=== PATIENT | female | born 1990 | race Caucasian/White ===

== ENCOUNTER 2021-09-06 11:13 | Emergency (ER) | payer OTHER, SELFPAY ==
[2021-09-06 11:28] VITALS: BP 134/95; PULSE 84; RESP 16; TEMP 36.9; O2SAT 97; BMI 26.5
--- NOTE | 2021-09-06 11:40 | DI.US.S_ITS ---
PROCEDURE: US PELVIC COMPLETE INDICATIONS: PAIN, BLEEDING TECHNIQUE: Real-time scanning was performed of the pelvic organs, with image documentation. Additional endovaginal scanning was necessary due to incomplete visualization of the adnexal and endometrial structures by transabdominal scanning. COMPARISON: None. FINDINGS: Uterus: Anteverted and measures 8.6 x 4 x 6.5 cm. The endometrium measures 2.6 mm in combined thickness. Hypoechoic lesion in the cervix, compatible with a nabothian cyst. Ovaries: The right ovary measures 2.6 x 1.5 x 3.2 cm. A thick-walled, hypoechoic lesion is seen in the right ovary, measuring up to 1.2 cm, concerning for hemorrhagic cyst. The left ovary measures 2.9 x 1.7 x 1.3 cm. Other: No pathologic free abdominal or pelvic fluid. IMPRESSION: Thick-walled, hypoechoic lesion in the right ovary, concerning for a hemorrhagic cyst. Dictated by: Jesús Hoffman M.D. on 09/06/2021 at 12:18 Approved by: Jesús Hoffman M.D. on 09/06/2021 at 12:21
[2021-09-06 11:42] LABS: Appearance Urine UA CLEAR; Bilirubin Urine UA NEGATIVE (NEGATIVE); Color Urine UA YELLOW; Glucose Urine UA NEGATIVE (Negative); Ketones Urine UA NEGATIVE (NEGATIVE); Leukocyte Esterase Urine UA NEGATIVE (NEGATIVE); Nitrite Urine UA NEGATIVE (Negative); Occult Blood Urine UA 3+ (Negative); Protein Urine UA NEGATIVE (Negative); Specific Gravity Urine UA <=1.005 (1.000-1.035); Urobilinogen Urine UA 0.2 E.U./dL (0.2)
[2021-09-06 11:45] LABS: pH Urine UA 5.5 (4.5-8.0)
[2021-09-06 11:46] LABS: Pregnancy Test Urine Positive (Negative)
[2021-09-06 11:53] LABS: RBC Urine 10-30/HPF (0-5/HPF); WBC Urine None Seen (0-5/HPF)
[2021-09-06 11:54] LABS: Bacteria Urine None Seen; Culture Indicated Urine Cult Not Indicated
[2021-09-06 12:00] LABS: Add Manual Diff / Slide Review NO; Basophils Absolute Auto 0 /uL (0-100); Basophils Percent Auto 0.6 % (0-2); Eosinophils Absolute Auto 100 /uL (0-450); Eosinophils Percent Auto 1.3 % (2-4); Hematocrit 38.4 % (36-46); Hemoglobin 12.7 g/dL (12.0-16.0); Lymphocytes Absolute Auto 1600 /uL (1100-4500); Mean Corpuscular HGB Conc 33.2 % (30-36); Mean Corpuscular Hemoglobin 27.5 PG (26-34); Mean Corpuscular Volume 82.9 fL (80-100); Monocytes Absolute Auto 600 /uL (0-900); Monocytes Percent Auto 7.2 % (3-14); Neutrophils Absolute Auto 5400 /uL (1500-7000); Neutrophils Percent Auto 69.9 % (50-75); Platelet Count 204 X10^3/uL (150-400); Red Blood Cell Count 4.63 X10^6/uL (4.0-5.2); White Blood Cell Count 7.7 X10^3/uL (4.5-11.0)
--- NOTE | 2021-09-06 12:11 | ED_ITS ---
HPI - <Daniel Roa PA-C - Last Filed: 09/06/21 13:27> General Chief complaint: OB/Uterine Contractions Stated complaint: Miscarriage on 08/22. heavy bleeding/cramping Time Seen by Provider: 09/06/21 11:34 History of Present Illness HPI Narrative: 31-year-old female, presents to the ED with abnormal vaginal bleeding. Patient states her LMP was 07/16/2021, had a positive test, started experiencing vaginal bleeding on 08/22/2021 through 08/31/2021. Between 08/24/2021 and 08/31/2021, patient's hCG was dropping. However, on 08/31/2021, her ECG up trended to 248. Patient's vaginal bleeding on 08/31/2021, but restarted on 09/03/2021. Patient has not had the ultrasound for this to date. Patient's OBGYN had wanted her hCG drawn today for trending, however sink given patient's new vaginal bleeding, she was advised to go to the ED. Patient denies fever, chills, shortness of breath, nausea, vomiting, lightheadedness, dizziness, syncope. Patient endorses prior history of ectopic , is concerned for a repeat ectopic . Patient also endorses some mild pelvic cramping. Review of Systems <Daniel Roa PA-C - Last Filed: 09/06/21 13:27> Constitutional Constitutional: Denies chills, Denies fatigue, Denies fever(s), Denies frequent falls, Denies lethargy and Denies weakness Eyes Eyes: Denies change in vision, Denies eye discharge, Denies irritation and Denies loss of vision ENT Ears, Nose, Mouth, and Throat: Denies change in voice, Denies dizziness, Denies neck pain, Denies sore throat and Denies throat swelling Cardiovascular Cardiovascular: Denies chest pain, Denies irregular heart rhythm, Denies lightheadedness, Denies palpitations, Denies dyspnea, Denies dyspnea on exertion and Denies orthopnea Respiratory Respiratory: Denies cough, Denies dyspnea, Denies dyspnea on exertion and Denies wheezing Gastrointestinal Gastrointestinal: Denies abdominal pain, Denies change in bowel habits, Denies diarrhea, Denies nausea and Denies vomiting Genitourinary Genitourinary: Reports abnormal vaginal bleeding and Reports pelvic pain Musculoskeletal Musculoskeletal: Denies neck pain and Denies numbness Integumentary/Breasts Skin/Breast: Denies pruritus, Denies erythema, Denies rash and Denies wounds Neurologic Neurologic: Denies behavioral changes, Denies confusion, Denies dizziness, Denies frequent falls, Denies loss of vision, Denies numbness and Denies weakness Psychiatric Psychiatric: Denies anxiety, Denies behavioral changes, Denies confusion, Denies depression, Denies homicidal ideation and Denies suicidal ideation Endocrine Endocrine: Denies fatigue, Denies flushing and Denies palpitations Hematologic/Lymphatic Hematologic/Lymphatic: Denies easy bruising Allergic/Immunologic Allergic/Immunologic: Denies urticaria, Denies throat swelling and Denies wheezing Exam <Daniel Roa PA-C - Last Filed: 09/06/21 13:27> Initial Vital Signs Initial Vital Signs: Vital Signs Temperature 98.5 F 09/06/21 11:28 Pulse Rate 84 09/06/21 11:28 Respiratory Rate 16 09/06/21 11:28 Blood Pressure 134/95 H 09/06/21 11:28 Pulse Oximetry 97 09/06/21 11:28 Const General: cooperative HENMT Head: normocephalic and atraumatic Ears: external ears normal and TM's normal bilaterally Nose: external nose normal and No nasal discharge Face and sinus: sinuses nontender, face symmetric, no sinus tenderness and No dry mucous membranes Mouth: oral mucosae normal and moist mucous membranes Teeth and gingiva: dentition normal Throat: tonsils normal and uvula midline Eyes General: appearance normal, both eyes and all related structures Eyelids: eyelids normal Conjunctivae: conjunctivae normal Sclera: sclerae normal Pupils: PERRL EOM: EOM intact bilaterally Neck Neck: normal visual inspection, trachea midline, No lymphadenopathy, No midline deformity and No JVD Lymphatic: No lymphedema Chest Chest: normal inspection of the chest Resp Effort & Inspection: normal respiratory effort, able to speak in complete s entences, no respiratory distress and no use of accessory muscles Auscultation: clear to auscultation bilaterally, no rales, no rhonchi and no wheezes Cardio Rate: regular rate Rhythm: regular rhythm Heart Sounds: no click, no gallops, no murmurs and no rubs Pulses: normal peripheral pulses GI Inspection: non-distended Palpation: soft, no hepatosplenomegaly, No guarding, No pulsatile mass and No tender Auscultation: normal bowel sounds Other: Abdomen is soft, nondistended, nontender to palpation. No CVA tenderness. Other: Bright red bleeding per vagina, no clots visualized Back/Spine/Pelvis Back: No CVA tenderness Cervical Spine: cervical ROM normal and No pain with cervical ROM Thoracic/Lumbar Spine: thoracic and lumbar spine normal to inspection Skin General: no rashes or lesions noted, No jaundice and No petechiae Neuro General: patient alert, patient oriented x3, gait normal and no focal motor deficits Speech: speech normal Extrem General: full ROM, no clubbing, cyanosis or edema, no pedal edema and no calf tenderness Psych Appearance: well kempt Mental Status: mental status grossly normal Attitude: cooperative Thought Content: normal and suicidality Judgment: judgment good <Ge Santos DO - Last Filed: 09/09/21 08:38> Initial Vital Signs Initial Vital Signs: Vital Signs Temperature 98.5 F 09/06/21 11:28 Pulse Rate 84 09/06/21 11:28 Respiratory Rate 16 09/06/21 11:28 Blood Pressure 134/95 H 09/06/21 11:28 Pulse Oximetry 97 09/06/21 11:28 Course <Daniel Roa PA-C - Last Filed: 09/06/21 13:27> Course Course Narrative: HCG up trended from 248 to 270. Ultrasound shows no evidence of IUP, ectopic . 1.2 cm right ovarian cyst suspicious for a hemorrhagic cyst. No abnormal, pathologic pelvic fluid. Patient's vaginal bleeding likely due to incomplete miscarriage. Will discharge patient home with OBGYN follow-up for further management. ED return precautions discussed. Patient verbalized understanding. Orders Ordered: ED Orders 09/06/21 11:34 Test Urine Stat Urinalysis and Microscopic Stat 09/06/21 11:40 US pelvic complete Stat 09/06/21 11:50 Complete Blood Count AUTO DIFF Stat Comprehensive Metabolic Panel Stat HCG Quantitative /Beta subunit Stat Type and Screen Stat Vital Signs Vital signs: Vital Signs - 8 hr 09/06/21 11:28 Temperature 98.5 F Pulse Rate 84 Respiratory Rate 16 Blood Pressure 134/95 H Pulse Oximetry 97 <Ge Santos DO - Last Filed: 09/09/21 08:38> Orders Ordered: ED Orders 09/06/21 11:34 Test Urine Stat Urinalysis and Microscopic Stat 09/06/21 11:40 US pelvic complete Stat 09/06/21 11:50 Complete Blood Count AUTO DIFF Stat Comprehensive Metabolic Panel Stat HCG Quantitative /Beta subunit Stat Type and Screen Stat Vital Signs Vital signs: Vital Signs - 8 hr 09/06/21 11:28 Temperature 98.5 F Pulse Rate 84 Respiratory Rate 16 Blood Pressure 134/95 H Pulse Oximetry 97 MDM - OB/Uterine Contractions <Hyma ASHISH Roa - Last Filed: 09/06/21 13:27> Medical Records Attestation: I reviewed the patient's medical records. Lab Data Attestation: I reviewed the patient's lab results. Lab results narrative: HCG 270. H&H stable Result diagrams: 09/06/21 11:50 09/06/21 11:50 Labs: Lab Results 09/06/21 09/06/21 09/06/21 Range/Units 11:34 11:34 11:50 WBC 7.7 (4.5-11.0) X10^3/uL RBC 4.63 (4.0-5.2) X10^6/uL Hgb 12.7 (12.0-16.0) g/dL Hct 38.4 (36-46) % MCV 82.9 (80-100) fL MCH 27.5 (26-34) PG MCHC 33.2 (30-36) % RDW 13.0 (11.6-14.8) % Plt Count 204 (150-400) X10^3/uL Neut % (Auto) 69.9 (50-75) % Lymph % (Auto) 21.0 L (25-40) % [place] % (Auto) 7.2 (3-14) % Eos % (Auto) 1.3 L (2-4) % Baso % (Auto) 0.6 (0-2) % Neut # (Auto) 5400 (8608-4781) /uL Lymph # (Auto) 1600 (5055-2070) /uL [place] # (Auto) 600 (0-900) /uL Eos # (Auto) 100 (0-450) /uL Baso # (Auto) 0 (0-100) /uL Sodium (137-145) mmol/L Potassium (3.4-5.1) mmol/L Chloride (98-107) mmol/L Carbon Dioxide (22-32) mmol/L BUN (7-17) mg/dL Creatinine (0.52-1.04) mg/dL Estimated GFR (>60) mL/min BUN/Creatinine Ratio (6-22) Glucose (70-100) mg/dL Calcium (8.4-10.2) mg/dL Total Bilirubin (0.2-1.3) mg/dL AST (14-36) IU/L ALT (<35) IU/L Alkaline Phosphatase (38-126) U/L Total Protein (6.3-8.2) g/dL Albumin (3.5-5.0) g/dL Globulin (1.7-4.1) g/dL Albumin/Globulin Ratio (1.0-2.8) HCG, Quant mIU/mL Urine Color Yellow Urine Appearance Clear Urine pH 5.5 (4.5-8.0) Ur Specific Steele <=1.005 (1.000-1.035) Urine Protein Negative (Negative) Urine Glucose (UA) Negative (Negative) g/dL Urine Ketones Negative (NEGATIVE) Urine Occult Blood 3+ H (Negative) Urine Nitrate Negative (Negative) Urine Bilirubin Negative (NEGATIVE) Urine Urobilinogen 0.2 (0.2) E.U./dL Ur Leukocyte Esterase Negative (NEGATIVE) Urine RBC 10-30/hpf H (0-5/HPF) Urine WBC None seen (0-5/HPF) Urine Bacteria None seen (None) Ur Culture Indicated? Cult not indicated Urine Test Positive H (Negative) Blood Type Antibody Screen 09/06/21 09/06/21 Range/Units 11:50 11:50 WBC (4.5-11.0) X10^3/uL RBC (4.0-5.2) X10^6/uL Hgb (12.0-16.0) g/dL Hct (36-46) % MCV (80-100) fL MCH (26-34) PG MCHC (30-36) % RDW (11.6-14.8) % Plt Count (150-400) X10^3/uL Neut % (Auto) (50-75) % Lymph % (Auto) (25-40) % [place] % (Auto) (3-14) % Eos % (Auto) (2-4) % Baso % (Auto) (0-2) % Neut # (Auto) (7403-8592) /uL Lymph # (Auto) (6711-3457) /uL [place] # (Auto) (0-900) /uL Eos # (Auto) (0-450) /uL Baso # (Auto) (0-100) /uL Sodium 138 (137-145) mmol/L Potassium 3.8 (3.4-5.1) mmol/L Chloride 103 (98-107) mmol/L Carbon Dioxide 26 (22-32) mmol/L BUN 12 (7-17) mg/dL Creatinine 0.59 (0.52-1.04) mg/dL Estimated GFR > 60.0 (>60) mL/min BUN/Creatinine Ratio 20.3 (6-22) Glucose 96 (70-100) mg/dL Calcium 9.3 (8.4-10.2) mg/dL Total Bilirubin 1.1 (0.2-1.3) mg/dL AST 19 (14-36) IU/L ALT 12 (<35) IU/L Alkaline Phosphatase 50 (38-126) U/L Total Protein 7.5 (6.3-8.2) g/dL Albumin 4.7 (3.5-5.0) g/dL Globulin 2.8 (1.7-4.1) g/dL Albumin/Globulin Ratio 1.7 (1.0-2.8) HCG, Quant 270.3 mIU/mL Urine Color Urine Appearance Urine pH (4.5-8.0) Ur Specific Steele (1.000-1.035) Urine Protein (Negative) Urine Glucose (UA) (Negative) g/dL Urine Ketones (NEGATIVE) Urine Occult Blood (Negative) Urine Nitrate (Negative) Urine Bilirubin (NEGATIVE) Urine Urobilinogen (0.2) E.U./dL Ur Leukocyte Esterase (NEGATIVE) Urine RBC (0-5/HPF) Urine WBC (0-5/HPF) Urine Bacteria (None) Ur Culture Indicated? Urine Test (Negative) Blood Type A Positive Antibody Screen Negative Imaging Data US - OB: Radiologist's Impression: PROCEDURE:? US PELVIC COMPLETE ? INDICATIONS:? PAIN, BLEEDING ? TECHNIQUE:? Real-time scanning was performed of the pelvic organs, with image documentation.? Additional endovaginal scanning was necessary due to incomplete visualization of the adnexal and endometrial structures by transabdominal scanning.? ? COMPARISON:? None. ? FINDINGS:? ?? Uterus:? Anteverted and measures 8.6 x 4 x 6.5 cm.? The endometrium measures 2.6 mm in combined thickness.? Hypoechoic lesion in the cervix, compatible with a nabothian cyst. ? Ovaries:? The right ovary measures 2.6 x 1.5 x 3.2 cm.? A thick-walled, hypoechoic lesion is seen in the right ovary, measuring up to 1.2 cm, concerning for hemorrhagic cyst. ? The left ovary measures 2.9 x 1.7 x 1.3 cm. ? Other: ? No pathologic free abdominal or pelvic fluid. ? IMPRESSION:? Thick-walled, hypoechoic lesion in the right ovary, concerning for a hemorrhagic cyst. ? Dictated by: Jesús Hoffman M.D. on 09/06/2021 at 12:18 ? ? Approved by: Jesús Hoffman M.D. on 09/06/2021 at 12:21 ? MDM Narrative Medical decision making narrative: 31-year-old female, presents to the ED with abnormal vaginal bleeding. Concern for ectopic versus ruptured ovarian cyst versus intrauterine versus incomplete miscarriage versus anemia. Will order labs, a quantitative hCG, ob ultrasound. Patient declines pain medication. Will reassess. <Ge Santos DO - Last Filed: 09/09/21 08:38> Lab Data Labs: Lab Results 09/06/21 09/06/21 09/06/21 Range/Units 11:34 11:34 11:50 WBC 7.7 (4.5-11.0) X10^3/uL RBC 4.63 (4.0-5.2) X10^6/uL Hgb 12.7 (12.0-16.0) g/dL Hct 38.4 (36-46) % MCV 82.9 (80-100) fL MCH 27.5 (26-34) PG MCHC 33.2 (30-36) % RDW 13.0 (11.6-14.8) % Plt Count 204 (150-400) X10^3/uL Neut % (Auto) 69.9 (50-75) % Lymph % (Auto) 21.0 L (25-40) % [place] % (Auto) 7.2 (3-14) % Eos % (Auto) 1.3 L (2-4) % Baso % (Auto) 0.6 (0-2) % Neut # (Auto) 5400 (7566-9785) /uL Lymph # (Auto) 1600 (8664-0680) /uL [place] # (Auto) 600 (0-900) /uL Eos # (Auto) 100 (0-450) /uL Baso # (Auto) 0 (0-100) /uL Sodium (137-145) mmol/L Potassium (3.4-5.1) mmol/L Chloride (98-107) mmol/L Carbon Dioxide (22-32) mmol/L BUN (7-17) mg/dL Creatinine (0.52-1.04) mg/dL Estimated GFR (>60) mL/min BUN/Creatinine Ratio (6-22) Glucose (70-100) mg/dL Calcium (8.4-10.2) mg/dL Total Bilirubin (0.2-1.3) mg/dL AST (14-36) IU/L ALT (<35) IU/L Alkaline Phosphatase (38-126) U/L Total Protein (6.3-8.2) g/dL Albumin (3.5-5.0) g/dL Globulin (1.7-4.1) g/dL Albumin/Globulin Ratio (1.0-2.8) HCG, Quant mIU/mL Urine Color Yellow Urine Appearance Clear Urine pH 5.5 (4.5-8.0) Ur Specific Steele <=1.005 (1.000-1.035) Urine Protein Negative (Negative) Urine Glucose (UA) Negative (Negative) g/dL Urine Ketones Negative (NEGATIVE) Urine Occult Blood 3+ H (Negative) Urine Nitrate Negative (Negative) Urine Bilirubin Negative (NEGATIVE) Urine Urobilinogen 0.2 (0.2) E.U./dL Ur Leukocyte Esterase Negative (NEGATIVE) Urine RBC 10-30/hpf H (0-5/HPF) Urine WBC None seen (0-5/HPF) Urine Bacteria None seen (None) Ur Culture Indicated? Cult not indicated Urine Test Positive H (Negative) Blood Type Antibody Screen 09/06/21 09/06/21 Range/Units 11:50 11:50 WBC (4.5-11.0) X10^3/uL RBC (4.0-5.2) X10^6/uL Hgb (12.0-16.0) g/dL Hct (36-46) % MCV (80-100) fL MCH (26-34) PG MCHC (30-36) % RDW (11.6-14.8) % Plt Count (150-400) X10^3/uL Neut % (Auto) (50-75) % Lymph % (Auto) (25-40) % [place] % (Auto) (3-14) % Eos % (Auto) (2-4) % Baso % (Auto) (0-2) % Neut # (Auto) (8473-8895) /uL Lymph # (Auto) (4294-3781) /uL [place] # (Auto) (0-900) /uL Eos # (Auto) (0-450) /uL Baso # (Auto) (0-100) /uL Sodium 138 (137-145) mmol/L Potassium 3.8 (3.4-5.1) mmol/L Chloride 103 (98-107) mmol/L Carbon Dioxide 26 (22-32) mmol/L BUN 12 (7-17) mg/dL Creatinine 0.59 (0.52-1.04) mg/dL Estimated GFR > 60.0 (>60) mL/min BUN/Creatinine Ratio 20.3 (6-22) Glucose 96 (70-100) mg/dL Calcium 9.3 (8.4-10.2) mg/dL Total Bilirubin 1.1 (0.2-1.3) mg/dL AST 19 (14-36) IU/L ALT 12 (<35) IU/L Alkaline Phosphatase 50 (38-126) U/L Total Protein 7.5 (6.3-8.2) g/dL Albumin 4.7 (3.5-5.0) g/dL Globulin 2.8 (1.7-4.1) g/dL Albumin/Globulin Ratio 1.7 (1.0-2.8) HCG, Quant 270.3 mIU/mL Urine Color Urine Appearance Urine pH (4.5-8.0) Ur Specific [place] (1.000-1.035) Urine Protein (Negative) Urine Glucose (UA) (Negative) g/dL Urine Ketones (NEGATIVE) Urine Occult Blood (Negative) Urine Nitrate (Negative) Urine Bilirubin (NEGATIVE) Urine Urobilinogen (0.2) E.U./dL Ur Leukocyte Esterase (NEGATIVE) Urine RBC (0-5/HPF) Urine WBC (0-5/HPF) Urine Bacteria (None) Ur Culture Indicated? Urine Test (Negative) Blood Type A Positive Antibody Screen Negative Discharge Plan Departure Patient Disposition: Home Clinical Impression: Vaginal bleeding Instructions: DI for Miscarriage Activity Restrictions/Additional Instructions: You were evaluated in the ED today for vaginal bleeding. Your HCG measurement today was 270. Your ultrasound did not show an intrauterine or ectopic . It did show a 1.2 cm cyst on your right ovary that could possibly be a hemorrhagic cyst. Your labs were reassuring otherwise, no evidence of anemia. Please follow-up with your OBGYN for further management. Please return to the ED if you experience much worsening bleeding, lightheadedness, fainting, shortness of breath, fever, chills. <Ge Santos DO - Last Filed: 09/09/21 08:38> Cosign ED Attending Cosignature Attestation: I was immediately available in the department for consultation. This documentation has been reviewed and I agree with assessment and plan. Supervised by Ge Santos DO
[2021-09-06 12:13] LABS: Alanine Aminotransferase 12 IU/L (<35); Albumin 4.7 g/dL (3.5-5.0); Albumin Globulin Ratio 1.7 (1.0-2.8); Alkaline Phosphatase 50 U/L (38-126); Aspartate Aminotransferase 19 IU/L (14-36); BUN Creatinine Ratio 20.3 (6-22); Bilirubin Total 1.1 mg/dL (0.2-1.3); Blood Urea Nitrogen 12 mg/dL (7-17); Calcium 9.3 mg/dL (8.4-10.2); Carbon Dioxide 26 mmol/L (22-32); Chloride 103 mmol/L (98-107); Estimated Glomerular Filt Rate > 60.0 mL/min (>60); Globulin 2.8 g/dL (1.7-4.1); Glucose 96 mg/dL (70-100); HEMOLYSIS < 15 (0-50); Potassium 3.8 mmol/L (3.4-5.1); Sodium 138 mmol/L (137-145); Total Protein 7.5 g/dL (6.3-8.2)
[2021-09-06 12:30] LABS: HCG Quantitative /Beta subunit 270.3 mIU/mL
[2021-09-06 13:26] VITALS: BP 126/78; PULSE 80; RESP 16; O2SAT 97
== END 2021-09-06 13:26 | disposition home or self-care (01) ==
PROVIDERS: Emergency Medicine; Emergency Provider Student in an Organized Health Care Education/Training Program
DX: O03.9 Complete or unspecified spontaneous abortion without complication (principal)
CPT/HCPCS: 36415; 76830; 76856; 80053; 81001; 81025; 84702; 85025; 86850; 86900; 86901; 99283; 99284

== ENCOUNTER → 2021-09-08 14:44 | Outpatient (CLI) | payer OTHER, SELFPAY ==
[2021-09-08 17:04] LABS: HCG Quantitative /Beta subunit 272.7 mIU/mL
== END ==
PROVIDERS: Referring Provider Obstetrics & Gynecology; Visit Provider Obstetrics & Gynecology
DX: O20.9 Hemorrhage in early pregnancy, unspecified (principal)
CPT/HCPCS: 36415; 84702

== ENCOUNTER → 2021-09-12 10:46 | Outpatient (CLI) | payer OTHER, SELFPAY ==
[2021-09-12 13:02] LABS: HCG Quantitative /Beta subunit 233.6 mIU/mL
== END ==
PROVIDERS: Referring Provider Obstetrics & Gynecology; Visit Provider Obstetrics & Gynecology
DX: O20.9 Hemorrhage in early pregnancy, unspecified (principal)
CPT/HCPCS: 36415; 84702

== ENCOUNTER → 2021-09-13 15:47 | Outpatient (CLI) | payer OTHER, SELFPAY ==
--- NOTE | 2021-09-13 15:48 | DI.US.S_ITS ---
PROCEDURE: US PELVIC COMPLETE INDICATIONS: BLEEDING. FOLLOW UP PELVIC. POSITIVE DECREASING HCG. TECHNIQUE: Real-time scanning was performed of the pelvic organs, with image documentation. Additional endovaginal scanning was necessary due to incomplete visualization of the adnexal and endometrial structures by transabdominal scanning. COMPARISON: [facility], , US PELVIC COMPLETE, 09/06/2021, 11:59. FINDINGS: Uterus: Uterus is normal in size at 7.4 x 6.5 x 3.7 cm. The endometrium measures 2-3 mm in combined thickness. No findings of an intrauterine can be seen. Incidental note is made of nabothian cysts. Ovaries: The right ovary measures 2.9 x 2.7 x 1.7 cm and demonstrates a likely 1.3 cm corpus luteum. The left ovary measures 3.2 x 2.1 x 2 cm. The ovaries have a normal sonographic appearance. No adnexal masses are seen. Other: No pathologic free abdominal or pelvic fluid. IMPRESSION: No findings of an intrauterine can be seen. Likely corpus luteum seen involving the right ovary. No findings of ectopic can be seen. However, ectopic is possible. Close clinical followup, with serial beta-hCG and serial ultrasound are recommended, if clinically appropriate. Dictated by: Domingo Dooley M.D. on 09/13/2021 at 15:29 Approved by: Domingo Dooley M.D. on 09/13/2021 at 15:31
== END ==
PROVIDERS: Referring Provider Obstetrics & Gynecology; Visit Provider Obstetrics & Gynecology
DX: O20.9 Hemorrhage in early pregnancy, unspecified (principal)
CPT/HCPCS: 36415; 76830; 76856; 84702

== ENCOUNTER → 2021-09-13 17:09 | Outpatient (CLI) | payer OTHER, SELFPAY ==
[2021-09-13 18:31] LABS: HCG Quantitative /Beta subunit 141.8 mIU/mL
== END ==
PROVIDERS: Referring Provider Obstetrics & Gynecology; Visit Provider Obstetrics & Gynecology
DX: N92.6 Irregular menstruation, unspecified (principal)
CPT/HCPCS: 36415; 84702

== ENCOUNTER → 2021-09-19 10:37 | Outpatient (CLI) | payer OTHER, SELFPAY ==
[2021-09-19 12:18] LABS: HCG Quantitative /Beta subunit 55.1 mIU/mL
== END ==
PROVIDERS: Referring Provider Obstetrics & Gynecology; Visit Provider Obstetrics & Gynecology
DX: N93.9 Abnormal uterine and vaginal bleeding, unspecified (principal)
CPT/HCPCS: 36415; 84702

== ENCOUNTER → 2021-12-07 11:21 | Outpatient (CLI) | payer OTHER, SELFPAY ==
[2021-12-07 13:39] LABS: HCG Quantitative /Beta subunit 163.4 mIU/mL
== END ==
PROVIDERS: Referring Provider Obstetrics & Gynecology; Visit Provider Obstetrics & Gynecology
DX: N96 Recurrent pregnancy loss (principal)
CPT/HCPCS: 36415; 84702

== ENCOUNTER → 2021-12-09 10:13 | Outpatient (CLI) | payer OTHER, SELFPAY ==
[2021-12-09 11:08] LABS: HCG Quantitative /Beta subunit 377.1 mIU/mL
== END ==
PROVIDERS: Referring Provider Obstetrics & Gynecology; Visit Provider Obstetrics & Gynecology
DX: N96 Recurrent pregnancy loss (principal); Z32.01 Encounter for pregnancy test, result positive
CPT/HCPCS: 36415; 84702

== ENCOUNTER → 2021-12-12 09:10 | Outpatient (CLI) | payer OTHER, SELFPAY ==
[2021-12-12 11:02] LABS: HCG Quantitative /Beta subunit 112.5 mIU/mL
== END ==
PROVIDERS: Referring Provider Obstetrics & Gynecology; Visit Provider Obstetrics & Gynecology
DX: N96 Recurrent pregnancy loss (principal); O20.9 Hemorrhage in early pregnancy, unspecified
CPT/HCPCS: 36415; 84702

== ENCOUNTER → 2022-03-15 12:38 | Outpatient (CLI) | payer OTHER, SELFPAY ==
[2022-03-15 16:51] LABS: COVID19 -Nasal RAPID Negative (Negative)
== END ==
PROVIDERS: PCP Student in an Organized Health Care Education/Training Program; Visit Provider Obstetrics & Gynecology
DX: Z20.822 Contact with and (suspected) exposure to COVID-19 (principal); Z01.812 Encounter for preprocedural laboratory examination
CPT/HCPCS: 87635

== ENCOUNTER 2022-03-16 09:27 | Day surgery (SDC) | payer OTHER, SELFPAY ==
[2022-03-14 08:02] VITALS: BMI 27.8
[2022-03-16] MEDS: ACETAMINOPHEN 325 MG TABLET 975 MG PO (09:46)
[2022-03-16 09:53] VITALS: BP 106/68; PULSE 71; RESP 17; TEMP 36.9; O2SAT 99; BMI 27.6
[2022-03-16] MEDS: LACTATED RINGERS 1,000 ML 100 ML IV (10:19)
[2022-03-16] MEDS: LACTATED RINGERS 1,000 ML 42 ML IV (10:21)
--- NOTE | 2022-03-16 11:15 | PM.GYNOP.1 ---
Operative Date/Time/Diagnoses Date of procedure: 03/16/22 Time of procedure: 12:01 Pre-op diagnosis: Recurrent miscarriages Post-op diagnosis: same Procedure & Clinicians Procedure: Procedures Operation Date: 03/16/22 11:00 <No data on this case meets the specified criteria> Indications: Recurrent miscarriage Surgeon: Renata Barnes Anesthesia Type: General (LMA) Operative Notes Findings: 7 week size anteverted uterus Both fallopian tube ostia observed No polyps, fibroids, or septum observed Closure Type: not applicable Specimen(s): none Estimated blood loss (mL): 5 Blood products transfused: none Procedure in detail: After informed consent was obtained, the patient was taken to the operating room where she was placed in the dorsal supine position. After adequate LMA general anesthesia was achieved, she was placed in the dorsal lithotomy position, and prepped and draped in the usual sterile fashion. A time-out was performed. A bivalve speculum was placed into the vagina and the anterior lip of the cervix was grasped with a single-tooth tenaculum. Cervical os was sequentially dilated until the hysteroscope could pass easily into the endometrial cavity. This was to the # 8 Hegar dilator. The hysteroscope passed easily into the endometrial cavity. Both fallopian tube ostia were observed. There were no polyps or fibroids visible. There was no septum visible. The hysteroscope was removed from the uterus. The single-tooth tenaculum was removed from the anterior lip of the cervix. The bivalve speculum was removed from the vagina. Sponge, lap, and instrument counts were correct x2. The patient tolerated the procedure well, and was taken to PACU in stable condition. Complications: none Post-operative Condition: stable Disposition: PACU Plan for aftercare: Home after recovery
--- NOTE | 2022-03-16 11:15 | PM.HP.1 ---
History of Present Illness History of Present Illness Date Patient Seen: 03/16/22 Time Patient Seen: 11:16 Chief complaint: DX HYSTEROSCOPY W (?) REVISION OF UTERINE SEPTUM Narrative: Patient is a 31-year-old 10 para 1 who presents for a diagnostic hysteroscopy to rule out endometrial anomalies. Patient History Medical History (Updated 03/16/22 @ 09:38 by Nu Day RN) Anxiety Ectopic (~2011) Miscarriage Previous recurrent miscarriages affecting , antepartum Family & Social History Social History: household members significant other Tobacco & Substance use: Tobacco type cigarettes Smoking Status Former smoker alcohol intake current alcohol intake frequency holiday/special occasion Substance Use Type does not use Meds Home Medications and Allergies Home Medications Medication Instructions Recorded Confirmed Type fexofenadine 180 mg tablet 180 mg PO BID 03/16/22 03/16/22 History sertraline 50 mg tablet 50 mg PO DAILY 03/16/22 03/16/22 History Allergies Allergy/AdvReac Type Severity Reaction Status Date / Time No Known Drug Allergies Allergy Verified 03/16/22 09:32 Exam Vital Signs (past 8 hours): - 03/16/22 09:53 Temperature 98.4 F Pulse Rate 71 Respiratory Rate 17 Blood Pressure 106/68 Pulse Oximetry 99 Oxygen Delivery Method Room Air Narrative Exam Narrative: HEENT: No thyromegaly, no anterior cervical or supraclavicular lymphadenopathy. Lungs:Clear to auscultation bilaterally, no wheezes. Cardiovascular: Regular rate and rhythm, no murmurs, rubs, or gallops. Abdomen: Well-healed laparoscopy scars. No hepatosplenomegaly. No masses palpable. External genitalia: Normal Vagina: Normal Cervix: Normal Bimanual exam: 7 Week size anteverted uterus. Mobile. No adnexal masses or tenderness Extremities: No edema Assessment & Plan Assessment & Plan narrative: Assessment: 31-year-old 10 para 1 with a history of recurrent miscarriages History of 1 ectopic on the left side Plan: Diagnostic hysteroscopy with possible resection septum if noted The risks, benefits, and alternatives to the procedure were explained to the patient. The risks including bleeding, infection, and uterine perforation. She understands these risks and agrees to proceed. A full par Q was held and consent form was signed. COVID-19 COVID-19 status: Negative Result date/Date tested (Pos, Neg/Pending): 03/15/22 Time Spent With Patient Time with patient: less than 30 minutes Critical Care time: I spent a total of [] minutes of critical care time on this patient's care today; this time is exclusive of procedural time.
--- NOTE | 2022-03-16 11:18 | PM.PREOP ---
Pre-operative Note COVID-19 COVID-19 status: Negative Result date/Date tested (Pos, Neg/Pending): 03/15/22 Criteria for continued procedure: Non-surgical alternatives not available or appropriate per current SOC Interval Note History & Physical reviewed/Exam performed by Physician: Yes Changes to H&P: No H&P completed within 30 days and has changed as indicated here:: 03/16/22
--- NOTE | 2022-03-16 11:55 | SUR.OPER ---
Lithotomy on padded OR bed, head on pillow, arms secured on padded arm boards at <90 degrees abduction. Legs secured in padded yellow fins stirrups.
[2022-03-16 12:06] VITALS: BP 112/71; PULSE 57; RESP 16; TEMP 36.6; O2SAT 94
[2022-03-16 12:11] VITALS: BP 101/66; PULSE 68; RESP 16; O2SAT 92
[2022-03-16 12:21] VITALS: BP 113/66; PULSE 61; RESP 13; O2SAT 99
[2022-03-16 12:26] VITALS: BP 106/63; PULSE 61; RESP 15; O2SAT 99
[2022-03-16] MEDS: ONDANSETRON 4 MG/2 ML INJ IV (12:44)
[2022-03-16] MEDS: OXYCODONE/ACETAMINOPHEN 5/325 TABLET 1 TAB PO (12:44)
[2022-03-16 12:47] VITALS: BP 111/71; PULSE 71; RESP 13; TEMP 36.4; O2SAT 100
== END 2022-03-16 13:10 | disposition home or self-care (01) ==
PROVIDERS: PCP Student in an Organized Health Care Education/Training Program; Referring Provider Obstetrics & Gynecology; Visit Provider Obstetrics & Gynecology
PROC: 0UDB8ZZ Extraction of Endometrium, Via Natural or Artificial Opening Endoscopic (ICD-10-PCS; CPT 58558; principal; 2022-03-16 11:00)
DX: N96 Recurrent pregnancy loss (principal)
CPT/HCPCS: 58555; 81025; J1100; J1885; J2250; J2405; J2704; J3010

== ENCOUNTER → 2022-05-04 16:45 | Outpatient (CLI) | payer OTHER, SELFPAY ==
[2022-05-04 18:40] LABS: HCG Quantitative /Beta subunit 8094.5 mIU/mL
== END ==
PROVIDERS: PCP Student in an Organized Health Care Education/Training Program; Referring Provider Obstetrics & Gynecology; Visit Provider Obstetrics & Gynecology
DX: Z32.01 Encounter for pregnancy test, result positive (principal)
CPT/HCPCS: 36415; 84702

== ENCOUNTER → 2022-05-06 10:19 | Outpatient (CLI) | payer OTHER, SELFPAY ==
[2022-05-06 11:34] LABS: HCG Quantitative /Beta subunit 14064 mIU/mL
== END ==
PROVIDERS: PCP Student in an Organized Health Care Education/Training Program; Referring Provider Obstetrics & Gynecology; Visit Provider Obstetrics & Gynecology
DX: Z32.01 Encounter for pregnancy test, result positive (principal)
CPT/HCPCS: 36415; 84702

== ENCOUNTER → 2022-06-27 17:04 | Outpatient (CLI) | payer OTHER, SELFPAY | PROVIDERS: PCP Student in an Organized Health Care Education/Training Program; Referring Provider Obstetrics & Gynecology; Visit Provider Obstetrics & Gynecology | DX: Z34.91 Encounter for supervision of normal pregnancy, unspecified, first trimester (principal) | CPT/HCPCS: 36415 ==

== ENCOUNTER → 2022-07-25 12:16 | Outpatient (CLI) | payer OTHER, SELFPAY ==
[2022-07-25 12:57] LABS: Add Manual Diff / Slide Review NO; Basophils Absolute Auto 0 /uL (0-100); Basophils Percent Auto 0.3 % (0-2); Eosinophils Absolute Auto 100 /uL (0-450); Eosinophils Percent Auto 0.7 % (2-4); Hematocrit 33.8 % (36-46); Hemoglobin 11.5 g/dL (12.0-16.0); Lymphocytes Absolute Auto 1600 /uL (1100-4500); Lymphocytes Percent Auto 19.1 % (25-40); Mean Corpuscular Hemoglobin 27.5 PG (26-34); Monocytes Absolute Auto 500 /uL (0-900); Monocytes Percent Auto 6.4 % (3-14); Neutrophils Absolute Auto 6200 /uL (1500-7000); Neutrophils Percent Auto 73.5 % (50-75); Platelet Count 193 X10^3/uL (150-400); Red Blood Cell Count 4.17 X10^6/uL (4.0-5.2); Red Cell Distribution Width 14.4 % (11.6-14.8); White Blood Cell Count 8.5 X10^3/uL (4.5-11.0)
[2022-07-25 13:24] LABS: Appearance Urine UA CLEAR; Bilirubin Urine UA NEGATIVE (NEGATIVE); Color Urine UA YELLOW; Glucose Urine UA NEGATIVE (Negative); Ketones Urine UA NEGATIVE (NEGATIVE); Leukocyte Esterase Urine UA TRACE (NEGATIVE); Nitrite Urine UA NEGATIVE (Negative); Occult Blood Urine UA NEGATIVE (Negative); Protein Urine UA NEGATIVE (Negative); Specific Gravity Urine UA <=1.005 (1.000-1.035); Urobilinogen Urine UA 0.2 E.U./dL (0.2)
[2022-07-25 13:39] LABS: Bacteria Urine Few (2-10); Culture Indicated Urine Cult Not Indicated; RBC Urine None Seen (0-5/HPF); Squamous Epithelial Cell Urine 0-1 /HPF (0-5/HPF); WBC Urine 0-1/HPF (0-5/HPF)
[2022-07-25 19:01] LABS: Hepatitis B Surface Antigen NEGATIVE s/c (NEGATIVE); Rubella Antibody IgG 9.9 IU/mL (>15)
[2022-07-25 19:33] LABS: HIV 1 & 2 Ab/Ag 4th Gen Combo NEGATIVE (NEGATIVE); Hep C Virus Ab w/Reflex Quant NEGATIVE s/c (NEGATIVE)
[2022-07-26 06:32] LABS: RPR Screen Non Reactive (Non Reactive)
[2022-07-26 08:13] LABS: Varicella IgG Antibody 244 index (Immune >165)
[2022-07-26 11:30] LABS: HSV 2 IGG AB 4.58 index (0.00-0.90)
[2022-07-27 21:06] LABS: AFP Value 33.8 ng/mL (.); Gest Age on Col Date 17.6 weeks (.); Insulin Dep Diabetes No (.); OSBR Risk 1IN 10000 (.); Results Report (.); Test Results *Screen Negative* (.)
== END ==
PROVIDERS: PCP Student in an Organized Health Care Education/Training Program; Referring Provider Obstetrics & Gynecology; Visit Provider Obstetrics & Gynecology
DX: Z34.82 Encounter for supervision of other normal pregnancy, second trimester (principal); Z3A.17 17 weeks gestation of pregnancy
CPT/HCPCS: 36415; 80055; 81003; 81015; 82105; 86695; 86696; 86787; 86803; 86850; 86900; 86901; 87086; 87389